=== PATIENT | female | born 1950 | race Caucasian/White ===

== ENCOUNTER 2021-06-28 14:29 | Emergency (ER) | payer MEDICARE ==
[~2021-06-28] VITALS: Ht 162.6 cm; Wt 83.9 kg
[2021-06-28] MEDS ORDERED: CASIRIVIMAB/IMDEVIMAB 10 ML in SODIUM CHLORIDE 0.9% 100 ML IV ONE (16:15)
== END 2021-06-28 17:05 | disposition home or self-care (01) ==
LOC: ER 15:00
DX: U07.1 COVID-19 (principal); I10 Essential (primary) hypertension; I50.9 Heart failure, unspecified; H40.9 Unspecified glaucoma
CPT/HCPCS: 99283